=== PATIENT | male | born 1950 | race Caucasian/White ===

== ENCOUNTER 2025-07-13 10:30 | Outpatient (RCR) | payer MEDICARE, SELFPAY ==
[2025-07-13 11:06] VITALS: BP 154/89
[2025-07-13] MEDS: CORTROSYN 1 MG IV (11:30)
[2025-07-13 12:36] LABS: ACTH Stim Cortisol 0 Min 11.7 ug/dl
[2025-07-13 14:36] LABS: ACTH Stim Cortisol 60 Min 21.9 ug/dl
[2025-07-13 14:37] LABS: ACTH Stim Cortisol 30 Min 17.3 ug/dl
== END 2025-07-15 09:02 | disposition home or self-care (01) ==
LOC: OID 10:30
PROVIDERS: ATTENDING PHYSICIAN Internal Medicine Endocrinology, Diabetes & Metabolism; FAMILY PHYSICIAN Internal Medicine
DX: E27.40 Unspecified adrenocortical insufficiency (principal); M81.0 Age-related osteoporosis without current pathological fracture
CPT/HCPCS: 82533; 96374